=== PATIENT | female | born 1990 | race Caucasian/White ===

== ENCOUNTER 2018-10-04 10:37 | Emergency (ER) | payer OTHER ==
[~2018-10-04] VITALS: Ht 167.6 cm; Wt 66.8 kg
[2018-10-04 12:25] LABS: HCT (SEDRATE) 49.5 % (34.6-47.8)
[2018-10-04 12:26] LABS: BASOPHILS # (AUTO) 0.03 x10^3/uL (0-0.1); BASOPHILS % (AUTO) 0 % (0-1); EOSINOPHILS # (AUTO) 0.02 x10^3/uL (0-0.4); EOSINOPHILS % (AUTO) 0 % (1-7); LYMPHOCYTES # (AUTO) 0.78 x10^3/uL (1-3.4); LYMPHOCYTES % (AUTO) 9 % (22-44); MD NO; MEAN CORPUSCULAR HEMOGLOBIN 33.4 pg (27.0-34.8); MEAN CORPUSCULAR HGB CONC 34.1 g/dL (32.4-35.8); MEAN CORPUSCULAR VOLUME 98.1 fL (80-100); MEAN PLATELET VOLUME 8.2 fL (7.4-10.4); MONOCYTES # (AUTO) 0.44 x10^3/uL (0.2-0.8); MONOCYTES % (AUTO) 5 % (2-9); NEUTROPHILS # (AUTO) 7.39 x10^3/uL (1.8-6.8); NEUTROPHILS % (AUTO) 85 % (42-75); PLATELET COUNT 229 x10^3/uL (130-400); RED BLOOD COUNT 5.02 x10^6/uL (3.82-5.3); RED CELL DISTRIBUTION WIDTH 14.4 % (9.6-15.2)
[2018-10-04 12:37] LABS: ALANINE AMINOTRANSFERASE 39 U/L (12-78); ALBUMIN 3.9 g/dL (3.4-5.0); ANION GAP 3 mmol/L (5-15); CALCIUM 8.7 mg/dL (8.5-10.1); CHLORIDE 108 mmol/L (98-107); CREATININE 0.95 mg/dL (0.55-1.02)
[2018-10-04 12:47] LABS: ALKALINE PHOSPHATASE 102 U/L (45-117); BILIRUBIN,TOTAL 0.4 mg/dL (0.2-1.0); FREE T4 (FREE THYROXINE) 0.61 ng/dL (0.76-1.46); THYROID STIMULATING HORMONE 0.419 mIU/L (0.358-3.740); TOTAL PROTEIN 7.8 g/dL (6.4-8.2)
[2018-10-04 13:19] LABS: MICROSCOPIC INDICATED
[2018-10-04 13:22] LABS: CULTURE INDICATED? NO
--- NOTE | 2018-10-04 13:33 | NUR ---
Recieved report from task RN Jesus Alberto. All questions answered. Assuming care of pt. Pt resting on gurney connected to NIBP and continous pulse ox. Pt's mother at bedside. Pt states recent move from [place] to [place] February 2018. Pt states, "starting in May 2018 I started having facial swelling, joint pains, on and off fevers, on and off hearling loss more severe in my left ear, on and off blurry vision, 24/7 metallic taste in my mouth. 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 I also was diagnosed around that time with acid reflux. The acid reflux is constant as well. I haven't been able to see a specialist or a primary care doctor still. I traveled to [place] in May 2018. My friend had been in [place] and we met up in [place]. He got sick when we were there and was in bed for three days. He had to go home early because of it. I got sick when I was there too and the symptoms never went away since."
[2018-10-04] MEDS ORDERED: LACT1CAP43 PO (13:46)
--- NOTE | 2018-10-04 17:12 | NUR ---
Pt resting on gurney connected to NIBP and continous pulse ox watching TV. Pt's mom at bedside. NADN. No needs expressed. Pt educated that lab results will not be back today. Pt aware to follow up with Dr. Vincent for primary care to review results. Pt states verbal understanding. Pt up by self with steady gait and balance to get dressed in personal clothes.
--- NOTE | 2018-10-04 17:45 | NUR ---
Patient given discharge instructions and they have confirmed that they understand the instructions. Patient ambulatory with steady gait. Pt left with all personal belongings, discharge paperwork, prescriptions, and referral information.
[2018-10-04 18:04] VITALS: BP 131/97
[2018-10-04 18:30] LABS: ANA SCREEN POSITIVE (Negative)
[2018-10-05 17:59] LABS: ANTI-NUCLEAR ANTIBODY PATTERN SPECKLED
== END 2018-10-04 17:47 ==
LOC: ED 13:01
DX: R21 Rash and other nonspecific skin eruption (principal); M13.861 Other specified arthritis, right knee; M13.862 Other specified arthritis, left knee; M13.871 Other specified arthritis, right ankle and foot; M13.872 Other specified arthritis, left ankle and foot
CPT/HCPCS: 36415; 80053; 81001; 82550; 84439; 84443; 85025; 85651; 86038; 86039; 99283

== ENCOUNTER 2019-10-27 13:44 | Emergency (ER) | payer BC, OTHER ==
[~2019-10-27] VITALS: Ht 167.6 cm; Wt 78.0 kg
[~2019-10-27 13:44] MED LIST: LACT1CAP43 PO
[2019-10-27] MEDS ORDERED: HYDROCORTISONE PO (14:34)
[2019-10-27] MEDS ORDERED: DULO60CA7 PO (14:35)
[2019-10-27] MEDS ORDERED: AMLO10TA8 PO (14:35)
[2019-10-27] MEDS ORDERED: LEVO25TA4 PO (14:35)
--- NOTE | 2019-10-27 14:46 | NUR ---
PT PROVIDED URINE SAMPLE. UA COLLECTED AND SENT TO LAB.
[2019-10-27 15:11] LABS: MICROSCOPIC AUTO
--- NOTE | 2019-10-27 15:15 | NUR ---
PT GOING TO CT.
[2019-10-27 15:16] LABS: CULTURE INDICATED? NO
--- NOTE | 2019-10-27 15:28 | NUR ---
PT BACK FROM CT. LAB CALLED ABOUT BLOOD WORK NOT PENDING YET. AIR QUALITY TECHNICIAN WILL LOOK INTO IT.
[2019-10-27 15:31] LABS: BASOPHILS # (AUTO) 0.03 x10^3/uL (0-0.1); BASOPHILS % (AUTO) 0 % (0-1); EOSINOPHILS # (AUTO) 0.02 x10^3/uL (0-0.4); EOSINOPHILS % (AUTO) 0 % (1-7); LYMPHOCYTES # (AUTO) 1.31 x10^3/uL (1-3.4); LYMPHOCYTES % (AUTO) 12 % (22-44); MD NO; MEAN CORPUSCULAR HEMOGLOBIN 28.5 pg (27.0-34.8); MEAN CORPUSCULAR HGB CONC 33.3 g/dL (32.4-35.8); MEAN CORPUSCULAR VOLUME 85.6 fL (80-100); MEAN PLATELET VOLUME 8.3 fL (7.4-10.4); MONOCYTES # (AUTO) 0.31 x10^3/uL (0.2-0.8); MONOCYTES % (AUTO) 3 % (2-9); NEUTROPHILS % (AUTO) 85 % (42-75); PLATELET COUNT 391 x10^3/uL (130-400); RED BLOOD COUNT 5.48 x10^6/uL (3.82-5.3); RED CELL DISTRIBUTION WIDTH 15.2 % (9.6-15.2)
--- NOTE | 2019-10-27 15:35 | NUR ---
LABS PENDING AT THIS TIME
[2019-10-27 15:42] LABS: ALBUMIN 3.9 g/dL (3.4-5.0); ANION GAP 7 mmol/L (5-15); CALCIUM 9.4 mg/dL (8.5-10.1); CHLORIDE 105 mmol/L (98-107); CREATININE 1.44 mg/dL (0.55-1.02)
--- NOTE | 2019-10-27 15:51 | NUR ---
ALL RESULTS ARE PENDING AT THIS TIME. CHART UP FOR RECHECK.
--- NOTE | 2019-10-27 16:46 | NUR ---
MD IS WAITING FOR UROLOGY CONSULT. PT UPDATED.
[2019-10-27 16:48] VITALS: BP 118/75
== END 2019-10-27 17:34 | disposition home or self-care (01) ==
LOC: ED 17:00
DX: N20.2 Calculus of kidney with calculus of ureter (principal); R31.9 Hematuria, unspecified
CPT/HCPCS: 36415; 74176; 80048; 81001; 82040; 84703; 85025; 99284

== ENCOUNTER 2020-03-15 10:49 | Emergency (ER) | payer BC ==
[~2020-03-15] VITALS: Ht 167.6 cm; Wt 80.0 kg
[~2020-03-15 10:49] MED LIST changes: +AMLO10TA8 PO; +DULO60CA7 PO; +HYDROCORTISONE PO; +LEVO25TA4 PO
[2020-03-15 12:28] LABS: BASOPHILS # (AUTO) 0.03 x10^3/uL (0-0.1); BASOPHILS % (AUTO) 0 % (0-1); EOSINOPHILS # (AUTO) 0.23 x10^3/uL (0-0.4); EOSINOPHILS % (AUTO) 2 % (1-7); LYMPHOCYTES # (AUTO) 1.34 x10^3/uL (1-3.4); LYMPHOCYTES % (AUTO) 13 % (22-44); MD NO; MEAN CORPUSCULAR HEMOGLOBIN 29.2 pg (27.0-34.8); MEAN CORPUSCULAR HGB CONC 33.3 g/dL (32.4-35.8); MEAN CORPUSCULAR VOLUME 87.9 fL (80-100); MEAN PLATELET VOLUME 8.6 fL (7.4-10.4); MONOCYTES # (AUTO) 0.47 x10^3/uL (0.2-0.8); MONOCYTES % (AUTO) 5 % (2-9); NEUTROPHILS # (AUTO) 8.06 x10^3/uL (1.8-6.8); NEUTROPHILS % (AUTO) 80 % (42-75); PLATELET COUNT 321 x10^3/uL (130-400); RED BLOOD COUNT 5.09 x10^6/uL (3.82-5.3); RED CELL DISTRIBUTION WIDTH 14.2 % (9.6-15.2)
--- NOTE | 2020-03-15 12:33 | NUR ---
BEAUTY PARLOR CLEANER: PT TO ROOM FROM LOBBY
--- NOTE | 2020-03-15 12:33 | NUR ---
IMAGING ADMINISTRATOR: PT PROVIDED W/ URINE CUP AND EDUCATED ON NEED FOR SAMPLE.
[2020-03-15 12:40] LABS: ALBUMIN 4.4 g/dL (3.4-5.0); ANION GAP 9 mmol/L (5-15); CALCIUM 9.2 mg/dL (8.5-10.1); CHLORIDE 108 mmol/L (98-107)
[2020-03-15 12:46] LABS: ALANINE AMINOTRANSFERASE 26 U/L (12-78); ALKALINE PHOSPHATASE 75 U/L (45-117); BILIRUBIN,TOTAL 0.6 mg/dL (0.2-1.0); CREATININE 1.14 mg/dL (0.55-1.02); TOTAL PROTEIN 7.5 g/dL (6.4-8.2)
[2020-03-15] MEDS ORDERED: ONDANSETRON 2MG/ML, 2ML IVPush ONE (13:00)
[2020-03-15] MEDS ORDERED: KETOROLAC 30 MG/1 ML IVPush ONE (13:00)
--- NOTE | 2020-03-15 13:12 | NUR ---
REPORT RECEIVED FROM KRISTIN FOSTER. PT IN CT.
[2020-03-15] MEDS ORDERED: ONDANSETRON 2MG/ML, 2ML ONE (13:30)
[2020-03-15] MEDS ORDERED: KETOROLAC 30 MG/1 ML ONE (13:30)
--- NOTE | 2020-03-15 13:40 | NUR ---
PIV STARTED, PT MEDICATED PER EMAR. AWAITING RESULTS. RESP EVEN AND UNLABORED, NADN.
[2020-03-15 14:04] LABS: MICROSCOPIC INDICATED
--- NOTE | 2020-03-15 14:36 | NUR ---
PT REPORTS RELIEF OF PAIN AFTER MEDS.
--- NOTE | 2020-03-15 14:47 | NUR ---
PT AMBULATED TO THE BR W/ A STEADY GAIT. ALL TESTS RESULTED. PT IS UP FOR RECHECK AT THIS TIME.
[2020-03-15 16:00] VITALS: BP 96/56
== END 2020-03-15 16:13 | disposition home or self-care (01) ==
LOC: ED 15:45
DX: N20.1 Calculus of ureter (principal); R30.0 Dysuria; M54.5 Low back pain; R11.10 Vomiting, unspecified
CPT/HCPCS: 36415; 74176; 80053; 81001; 83690; 84703; 85025; 87086; 96374; 96375; 99285; J1885; J2405